=== PATIENT | male | born 1985 | race Caucasian/White ===

== ENCOUNTER 2017-08-27 13:08 | Emergency (ER) | payer OTHER ==
[~2017-08-27] VITALS: Ht 172.7 cm; Wt 81.9 kg
[2017-08-27 13:35] VITALS: BP 120/79
[2017-08-27] MEDS ORDERED: KETOROLAC 30 MG/1 ML ONE (15:58)
[2017-08-27] MEDS ORDERED: DIAZEPAM 5 MG TABLET ONE (15:59)
[2017-08-27] MEDS ORDERED: PLEASE ENTER ALLERGIES MC SCH ×2 (16:00)
[2017-08-27] MEDS ORDERED: DIAZEPAM 5 MG TABLET PO ONE (16:00)
[2017-08-27] MEDS ORDERED: KETOROLAC 30 MG/1 ML IM ONE (16:00)
[2017-08-27] MEDS ORDERED: KETOROLAC 60 MG/2 ML IM ONE (16:00)
== END 2017-08-27 16:53 | disposition home or self-care (01) ==
LOC: ED 16:45
DX: T78.3XXA Angioneurotic edema, initial encounter (principal); G89.29 Other chronic pain; M54.42 Lumbago with sciatica, left side; K64.8 Other hemorrhoids; K64.4 Residual hemorrhoidal skin tags; X58.XXXA Exposure to other specified factors, initial encounter; Y93.89 Activity, other specified; Y92.89 Other specified places as the place of occurrence of the external cause; Y99.8 Other external cause status
CPT/HCPCS: 72110; 96372; 99284; J1885